=== PATIENT | male | born 1990 | race African-American/Black ===

== ENCOUNTER 2022-12-12 11:49 | Emergency (ER) | payer SELFPAY ==
[~2022-12-12] VITALS: Ht 170.2 cm; Wt 58.1 kg
[2022-12-12] MEDS ORDERED: PHENOBARBITAL SODIUM 130 MG/1 ML DISP.SYRIN IM ONE (14:00)
[2022-12-12 14:12] VITALS: BP 122/74; TEMP 98; O2SAT 100
== END 2022-12-12 14:35 | disposition home or self-care (01) ==
LOC: ER 11:58
DX: F10.239 Alcohol dependence with withdrawal, unspecified (principal); Z76.5 Malingerer [conscious simulation]; Z88.8 Allergy status to other drugs, medicaments and biological substances; Y90.9 Presence of alcohol in blood, level not specified
CPT/HCPCS: A4606; A4663